=== PATIENT | female | born 1950 | race Caucasian/White ===

== ENCOUNTER 2017-07-30 11:02 | Day surgery (SDC) | payer MEDICARE ==
[2017-07-30 14:18] VITALS: BP 140/89
== END 2017-07-30 14:08 | disposition home or self-care (01) ==
LOC: SDC 11:02
PROVIDERS: Ophthalmology
PROC: 08RK3JZ Replacement of Left Lens with Synthetic Substitute, Percutaneous Approach (ICD-10-PCS; principal; 2017-07-30 14:30)
DX: H25.813 Combined forms of age-related cataract, bilateral (principal); H53.8 Other visual disturbances; H52.00 Hypermetropia, unspecified eye
CPT/HCPCS: V2632

== ENCOUNTER 2017-08-13 10:55 | Day surgery (SDC) | payer MEDICARE ==
[2017-08-13 12:47] VITALS: BP 157/75
== END 2017-08-13 12:41 | disposition home or self-care (01) ==
LOC: SDC 10:55
PROVIDERS: Ophthalmology
PROC: 08RJ3JZ Replacement of Right Lens with Synthetic Substitute, Percutaneous Approach (ICD-10-PCS; principal; 2017-08-13 14:00)
DX: H25.813 Combined forms of age-related cataract, bilateral (principal)
CPT/HCPCS: V2632